=== PATIENT | male | born 1995 | race Caucasian/White ===

== ENCOUNTER 2024-08-24 15:35 | Emergency (ER) | payer OTHER, SELFPAY ==
[2024-08-24] VITALS (7 sets, daily range): BP systolic 97–117; BP diastolic 61–78; BMI 22.5
--- NOTE | 2024-08-24 17:39 | ED.GENMED ---
History of Present Illness
General
Chief Complaint: Breathing Problem
Source: patient
Exam Limitations: none
Time Seen by Provider: 08/24/24 16:37
Nursing documentation reviewed up to this point in time: agreed with
History of Present Illness
History of Present Illness:
Patient is a 29-year-old male with cerebral palsy presents to the ER for evaluation. Patient reports yesterday he went to the bathroom late afternoon and they were cleaning the bathroom with acetone. He reports he felt immediately lightheaded and
had throat discomfort/irritation. Today he has had the same feeling of throat discomfort and has had intermittent discomfort when he takes a deep breath . he feels it is a little hard to take a deep breath and felt mildly short of breath.
Patient has been eating and drinking normally today and tolerating his secretions.
Patient mainly uses his wheelchair while working however is able to ambulate with a walker. No prior history of DVT PE.
Past History
Past History
ED Past Medical History: Asthma and Other (Cerebral palsy, constipation)
ED Past Surgical History: Orthopedic (de-rotation of bilateral legs, baclofen pump (now removed))
Social History
Tobacco: Non-smoker
Personal: Single
Living: with family
Employment: Student
Review of Systems
Review of Systems
Allergies reviewed?: Yes
All Other Systems: ROS reviewed and negative except as documented in HPI and ROS
Constitutional: Reports no symptoms; Denies fever
EENT: Reports other (throat irritation )
Respiratory: Reports trouble breathing
Cardiac: Reports no symptoms; Denies chest pain
ABD/GI: Reports no symptoms
: Reports no symptoms
Musculoskeletal: Reports no symptoms
Skin: Reports no symptoms
Neurological: Reports no symptoms
Psychiatric: Reports no symptoms
Phy Exam
General Physical Exam
General Presentation: well appearing
General age: appears stated age
General Skin: warm and dry
General Habitus: normal
General Mental: alert
General Hydration: appears well hydrated
Cardiovascular Exam
Cardiovascular Exam: regular rate/rhythm, no murmur and normal peripheral pulses
Pulmonary Exam
Pulmonary Exam: lungs clear and no respiratory distress
Neurological Exam
Neurological Exam: alert and oriented x3
Musculoskeletal Exam
Musculoskeletal Exam: full ROM
Skin Exam
Skin Exam: normal color and warm/dry
Psychiatric Exam
Psychiatric Exam: normal mood/affect
Course
Orders/Labs/Results
Orders:
Orders
08/24/24 16:28
Electrocardiogram (*1) Urgent
Reason for Study: Chest Pain
EKG- Treatment ONCE
08/24/24 17:38
Chest [CR Chest - 2 Views ] Urgent
Comment:
Reason For Exam: sob
08/24/24 17:41
Complete Blood Count/With Diff Urgent
Comprehensive Metabolic Panel Urgent
DDimer [D-Dimer] Urgent
Abnormal Lab Results
08/24/24
17:41
BUN 23 H mg/dl
(20)
08/24/24 17:41
08/24/24 17:41
Vital Signs
Initial and Last Documented VS:
Initial Vital Signs
Temp Pulse Resp BP Pulse Ox
98.1 F 80 16 117/68 100
08/24/24 15:37 08/24/24 15:37 08/24/24 15:37 08/24/24 15:37 08/24/24 15:37
Last Documented Vital Signs
Temp Pulse Resp BP Pulse Ox
98.1 F 79 19 97/61 96
08/24/24 15:37 08/24/24 19:30 08/24/24 19:30 08/24/24 19:00 08/24/24 19:30
Vocal Music Instructor consulted with Physician
Vocal Music Instructor consulted with physician?: Yes
Name of Physician Consulted: DR Membreno
MDM/Problems Addressed
Differential Diagnosis Includes:
not limited to : chemical inhalation exposure
MDM/Problems Addressed:
Patient is document is a 29-year-old male that was exposed to cleaning acetone yesterday and since then has felt lightheaded had a sore throat and had pain with deep breath. Patient presents here very anxious however no acute distress throat is
patent tolerating secretions well lungs are clear not hypoxic. Patient did have a brief episode of tachycardia while talking to me but however he is very anxious over the exposure. Patient had labs checked which were negative his chest x-ray is
negative. Because of his history of cerebral palsy and that he is in a wheelchair a lot of the time in order to rule out additional causes of patient's symptoms I did order a D-dimer which was negative.
I spoke with poison control no further intervention or recommendations given. Exposure as documented was yesterday . symptoms will resolve
*Radiology
Radiology exam reviewed: radiology read reviewed
*EKG
Interpreted by ED Provider?: Yes
Interpretation: normal
Comparison EKG: no comparison EKG present
Heart Rate: 85
Rate: normal
Rhythm: sinus
Ischemia: no ischemia
*Critical Care Note
Total Time (30-74mins, 75-104mins- exclusive of procedures): Not Applicable
ED Attending Note
-
Portions of this chart may have been created with voice recognition software.� Occasional wrong word or��sound alike� substitutions may have occurred due to the inherent limitations of voice recognition software.
Discharge Plan
Departure
Patient Disposition: Home (Routine Discharge)
Date of Disposition: 08/24/24
Time of Disposition: 20:05
Patient with high blood pressure during this ER visit?: No
Condition: Fair
Covid-19: Not Applicable
Discharge Problem:
Inhalation injury
Prescriptions:
No Action
ibuprofen 200 MG tablet
200 - 400 mg PO Q6HPRN PRN (Reason: as directed)
Referrals:
Hansbarger,Estrellita A., PA-C [Family Provider] -
Activity Restrictions/Additional Instructions:
As discussed your labs and x-rays were unremarkable. Your vital signs have been stable.
This is likely a mild chemical exposure/inhalation injury and symptoms will resolve on their own.
return if any worsening of symptoms
See your family doctor in the next several days for reevaluation.
Interventions
Interventions:
*Risk Screen - Suicide Last Done: 08/24/24 16:28
*General Assessment Last Done: 08/24/24 16:28
*Neglect/Abuse Screening Last Done: 08/24/24 16:28
*ED COVID-19 Vaccine History Last Done: 08/24/24 19:43
ED- Cardiac Assessment Last Done: 08/24/24 16:28
ED- Pulmonary Assessment Last Done: 08/24/24 16:28
Discharge Date and Time
Print Language: KYRGYZ
[2024-08-24 17:56] LABS: % Basophils 0.9 % (0-2); % Eosinophils 3.2 % (0-6); % Immature Granulocytes 0.4 % (0-0.5); % Lymphocytes 38.5 % (20.5-51.1); % Monocytes 6.3 % (1.7-9.3); % Neutrophils 50.7 % (42.2-75.2); Absolute Basophils 0.1 10^3/uL (0-0.2); Absolute Eosinophils 0.3 10^3/uL (0-0.7); Absolute Monocytes 0.5 10^3/uL (0.1-0.6); Hematocrit 43.2 % (39.0-52.0); Hemoglobin 15.1 g/dL (13.0-18.0); Mean Corpuscular Hgb 28.9 pg (27.0-31.0); Mean Corpuscular Volume 82.8 fL (80.0-94.0); Mean Platelet Volume 9.3 fL (7.4-10.4); Nucleated Red Blood Cells % 0 % (-); Platelet Count 306 10^3/uL (130-400); Red Blood Cell Count 5.22 10^6/uL (4.70-6.10); White Blood Cell Count 7.9 10^3/uL (4.8-10.8)
[2024-08-24 18:21] LABS: ALT (SGPT) 23 U/L (0-50); AST (SGOT) 25 U/L (17-59); Alkaline Phosphatase 65 U/L (38-126); Blood Urea Nitrogen 23 mg/dl (9-20); Calcium 10.2 mg/dl (8.4-10.2); Carbon Dioxide 25 mmol/L (22-30); Chloride 100 mmol/L (98-107); Estimated Creatinine Clearance 116 ml/min; Glucose 86 mg/dl (70-99); Potassium 4.4 mmol/L (3.5-5.1); Sodium 140 mmol/L (135-145); Total Bilirubin 0.5 mg/dl (0.2-1.3); Total Protein 8.2 g/dl (6.3-8.2); eGFR > 60.00
[2024-08-24 18:22] LABS: D-Dimer < 0.27 ug/mlFEU (0.00-0.50)
== END 2024-08-24 20:14 | disposition home or self-care (01) ==
LOC: EMR 15:35
PROVIDERS: Nurse Practitioner; EMERGENCY PHYSICIAN Emergency Medicine; FAMILY PHYSICIAN Physician Assistant Medical
DX: Z77.098 Contact with and (suspected) exposure to other hazardous, chiefly nonmedicinal, chemicals (principal); G80.8 Other cerebral palsy; J45.909 Unspecified asthma, uncomplicated
CPT/HCPCS: 99283; 71046; 80053; 85025; 85379; 93005

== ENCOUNTER 2025-04-26 13:33 | Emergency (ER) | payer OTHER, SELFPAY ==
[2025-04-26 13:36] VITALS: BP 117/82
[2025-04-26 14:04] LABS: Hematocrit 43.7 % (39.0-52.0); Hemoglobin 15.9 g/dL (13.0-18.0); Mean Corp Hgb Conc. 36.4 g/dL (33.0-37.0); Mean Corpuscular Volume 81.7 fL (80.0-94.0); Nucleated Red Blood Cells % 0 % (-); Red Cell Dist. Width 11.6 % (11.5-14.5)
[2025-04-26 14:29] LABS: ALT (SGPT) 16 U/L (0-50); AST (SGOT) 22 U/L (17-59); Albumin 5.2 g/dl (3.5-5.0); Alkaline Phosphatase 59 U/L (38-126); Blood Urea Nitrogen 21 mg/dl (9-20); Calcium 10.2 mg/dl (8.4-10.2); Carbon Dioxide 26 mmol/L (22-30); Chloride 101 mmol/L (98-107); Glucose 104 mg/dl (70-99); Potassium 4.5 mmol/L (3.5-5.1); Sodium 138 mmol/L (135-145); Total Protein 8.6 g/dl (6.3-8.2); eGFR > 60.00
[2025-04-26 14:56] VITALS: BP 108/76
[2025-04-26 15:00] VITALS: BP 113/87
--- NOTE | 2025-04-26 15:13 | ED.GENMED ---
History of Present Illness
General
Chief Complaint: Chest Pain
Source: patient
Exam Limitations: none
Time Seen by Provider: 04/26/25 14:46
Nursing documentation reviewed up to this point in time: agreed with
History of Present Illness
History of Present Illness:
30-year-old male with past medical history of cerebral palsy, asthma who presents to the emergency room with his mother for evaluation of chest pain and shortness of breath. Patient reports onset of symptoms yesterday and have been constant since
that time. He reports a sharp right sided chest pain that is worse with coughing and breathing. No relieving factors noted. He reports associated shortness of breath. He has had mild nonproductive cough. He denies any fever or chills. He has
not noticed any swelling in the legs. He does note that he has been having some occasional dysphagia for the past few weeks/months but no odynophagia. No nausea, vomiting, abdominal pain. He denies any other complaints. He denies any recent
viral symptoms. He has never had similar symptoms in the past. No known personal history of cardiac issues and no family history of early cardiac . No personal history of DVT/PE, no recent surgeries, only recent long travel was a trip to [facility]
[place] in February.
Past History
Past History
ED Past Medical History: Asthma and Other (Cerebral palsy, constipation)
ED Past Surgical History: Orthopedic (de-rotation of bilateral legs, baclofen pump (now removed))
Social History
Tobacco: Non-smoker
Personal: Single
Living: with family
Employment: Student
Review of Systems
Review of Systems
All Other Systems: ROS reviewed and negative except as documented in HPI and ROS
Constitutional: Denies fever or chills
Respiratory: Reports cough and trouble breathing
Cardiac: Reports chest pain; Denies palpitations
ABD/GI: Denies abdominal pain, nausea, vomiting or diarrhea
: Denies flank pain
Musculoskeletal: Denies edema, neck pain or back pain
Neurological: Denies dizzy or headache
Phy Exam
Physical Exam
Physical Exam:
General: Awake, alert, oriented x3; no acute distress
Head: Normocephalic, atraumatic
Eyes: Conjunctiva normal, sclera anicteric
Throat: Airway intact, handling secretions
Neck: Trachea midline, no JVD
Lungs: Clear to auscultation bilaterally, no wheezing, rales, rhonchi
Heart: Regular rate and rhythm, no murmurs, gallops, or rubs
Abd: Soft, non distended, nontender
Skin: no rash in area of concern
Extremities: No edema in extremities, no calf tenderness, equal pulses in all extremities
Scores
Heart Failure Risk
Heart Failure Risk Score: Not Applicable
Heart Score for Chest Pain Patients
STEMI patient?: No
History: Slightly or Non-Suspicious
ECG: Normal
Age: </= 45 years
Risk Factors: No Risk Factors
Troponin: </= Normal Limit
Heart Score for Chest Pain Patients: 0
Heart Score Risk: 2.5% MACE over next 6 weeks
PE Wells Score
Symptoms of DVT: No
No alternative diagnosis better explains the illness: No
Tachycardia with pulse > 100: No
Immobilization (>=3 days) or surgery within previous 4 weeks: Yes (Wheelchair-bound at baseline)
Prior history of DVT or pulmonary embolism: No
Presence of hemoptysis: No
Presence of malignancy: No
Pulmonary Embolism Risk Score: 1.5
Probability of PE: Pt is low risk
Withdrawal Assessment of Alcohol
Withdrawal Assessment Completed?: Not applicable
Course
Orders/Labs/Results
Orders:
Orders
04/26/25 13:35
Electrocardiogram (*1) Urgent
Reason for Study: Chest Pain
EKG- Treatment ONCE
04/26/25 13:43
Chest [CR Chest - 2 Views ] Urgent
Comment:
Reason For Exam: chest pain
04/26/25 13:53
Complete Blood Count/With Diff Urgent
Comprehensive Metabolic Panel Urgent
04/26/25 15:07
Troponin I Urgent
04/26/25 15:29
D-Dimer Urgent
04/26/25 16:09
Azithromycin [Zithromax] 500 mg PO NOW STA
Pantoprazole [Protonix IV] 40 mg IV NOW STA
Abnormal Lab Results
04/26/25
13:53
BUN 21 H mg/dl
(9-20)
Glucose 104 H mg/dl
(70-99)
Total Protein 8.6 H g/dl
(6.3-8.2)
Albumin 5.2 H g/dl
(3.5-5.0)
04/26/25 13:53
04/26/25 13:53
Vital Signs
Initial and Last Documented VS:
Initial Vital Signs
Temp Pulse Resp BP Pulse Ox
36.4 C 97 18 117/82 99
04/26/25 13:36 04/26/25 13:36 04/26/25 13:36 04/26/25 13:36 04/26/25 13:36
Last Documented Vital Signs
Temp Pulse Resp BP Pulse Ox
36.4 C 86 18 113/87 98
04/26/25 13:36 04/26/25 15:00 04/26/25 15:00 04/26/25 15:00 04/26/25 15:19
MDM/Problems Addressed
Differential Diagnosis Includes:
Pneumonia, pneumothorax, GERD/esophagitis, costochondritis, PE, pericarditis; lower clinical suspicion for ACS/angina
MDM/Problems Addressed:
30-year-old male with history as noted presents for evaluation of atypical chest pain associate with shortness of breath and mild cough since yesterday. He has had some recent issues with dysphagia. Vitals and exam as above. EKG shows sinus
rhythm with no acute ischemia. Will plan to place an IV check labs including a CBC and a CMP, troponin. Will check a D-dimer. Check chest x-ray. Monitor closely reassess after the above.
Labs reviewed: CBC shows no clinically significant abnormalities. CMP within acceptable range. Troponin completely undetectable and with symptoms for 24 hours this is sufficient to rule out acute MA. D-dimer is negative. Chest x-ray shows no
acute disease on my independent review. Patient's vital signs have been stable throughout with no tachycardia, no hypertension or hypotension, no tachypnea or hypoxia. At this point I think his chest pain may be related to GERD�he admits he has
been having some prominent dysphagia recently. He has a swallow study in a few weeks. I think it would be reasonable to start him on a PPI. I think treating empirically for an occult pneumonia is also reasonable given that he has been having some
swallowing issues and does have a mild cough albeit nonproductive and without fever or leukocytosis. Costochondritis also consideration. At this point no clear indication for hospitalization I think he can be discharged to follow-up as an
outpatient with his primary doctor. Patient and mother feel very comfortable with this plan. We spoke about potential diagnoses, return precautions. All questions were answered.
Chronic conditions affecting care:
Cerebral palsy
*Radiology
Radiology exam reviewed: preliminary read by ED provider
*Pulse Oximetry
SaO2: 98
Oxygen Mode of Delivery: Room air
Patient hypoxic: no (98%)
*EKG
Interpreted by ED Provider?: Yes
Heart Rate: 87
Rate: normal
Rhythm: sinus
[place]: normal axis
Interval: normal interval
QRS Pattern: normal QRS
Ischemia: no ischemia
*Critical Care Note
Total Time (30-74mins, 75-104mins- exclusive of procedures): Not Applicable
Data Reviewed
Source: patient and family
ED Attending Note
-
Portions of this chart may have been created with voice recognition software.� Occasional wrong word or��sound alike� substitutions may have occurred due to the inherent limitations of voice recognition software.
Discharge Plan
Departure
Patient Disposition: Home (Routine Discharge)
Date of Disposition: 04/26/25
Time of Disposition: 16:07
Patient with high blood pressure during this ER visit?: No
Discharge Problem:
Chest pain
Instructions: Chest Pain PCP Follow Up
Prescriptions:
New
pantoprazole [address] for susp in packet
40 mg PO DAILY Qty: 30 0RF
azithromycin 200 mg/5 mL suspension for reconstitution
250 mg PO DAILY 4 Days Qty: 25 0RF
Rx Instructions:
250 mg orally;
No Action
ibuprofen 200 MG tablet
200 - 400 mg PO Q6HPRN PRN (Reason: as directed)
Activity Restrictions/Additional Instructions:
Thank you for visiting the Emergency Department at [facility].
1. Please schedule a follow up appointment as directed. Call first thing tomorrow morning to make an appointment.
2. If indicated, please take your medications as instructed and indicated on discharge paperwork.
3. If any of your symptoms do not improve, or persist, or become more severe within 6-12 hours, please return to the emergency department for further care.
4. Please return to the emergency department if you develop a headache, neck pain/stiffness, fever greater than 100.4F, chest pain, shortness of breath, persistent nausea, vomiting, slurred speech, difficulty walking, numbness/tingling, weakness,
signs of infection or any other symptoms that are worrisome to you.
Please call [phone] if you have any questions.
Interventions
Interventions:
*Risk Screen - Suicide Last Done: 04/26/25 13:42
*General Assessment Last Done: 04/26/25 13:42
*Neglect/Abuse Screening Last Done: 04/26/25 13:42
*ED- Fall Risk Assessment Last Done: 04/26/25 15:02
*ED COVID-19 Vaccine History Last Done: 04/26/25 15:02
ED- Cardiac Assessment Last Done: 04/26/25 15:08
Discharge Date and Time
Print Language: BERMUDIAN
[2025-04-26 15:44] LABS: Troponin I < 0.012 ng/ml
[2025-04-26 15:52] LABS: D-Dimer < 0.27 ug/mlFEU (0.00-0.50)
[2025-04-26] MEDS: PROTONIX IV 40 MG IV (16:18)
[2025-04-26] MEDS: ZITHROMAX 500 MG PO (16:41)
== END 2025-04-26 16:48 | disposition home or self-care (01) ==
LOC: EMR 13:33
PROVIDERS: Emergency Medicine; EMERGENCY PHYSICIAN Emergency Medicine; FAMILY PHYSICIAN Family Medicine
DX: R07.89 Other chest pain (principal); J45.909 Unspecified asthma, uncomplicated; G80.8 Other cerebral palsy; Z99.3 Dependence on wheelchair
CPT/HCPCS: 96374; 99285; 71046; 80053; 84484; 85025; 85379; 93005

== ENCOUNTER → 2025-05-06 10:36 | Outpatient (REF) | payer OTHER, SELFPAY | LOC: RAD 10:36 | PROVIDERS: ATTENDING PHYSICIAN Physician Assistant; FAMILY PHYSICIAN Family Medicine | DX: R13.19 Other dysphagia (principal) | CPT/HCPCS: 74221 ==